=== PATIENT | male | born 1985 | race Two or more races ===

== ENCOUNTER 2020-01-30 18:14 | Emergency (ER) | payer BC ==
[2020-01-30 18:48] VITALS: BP 139/101
--- NOTE | 2020-01-30 19:11 | UC ---
Throat Pain/Nasal João HPI - HPI Summary HPI Summary: Sore throat for 2 days, fever started yesterday, joint pain and fever when pt has fever. Please print d/c instructions in Greek - History of Current Complaint Chief Complaint: UCRespiratory Stated Complaint: SORE THROAT,FEVER Time Seen by Provider: 01/30/20 19:10 Hx Obtained From: Patient Onset/Duration: Sudden Onset, Lasting Days Severity: Moderate Pain Intensity: 0 Associated Signs & Symptoms: Positive: Dysphagia, Fever - Allergies/Home Medications Allergies/Adverse Reactions: Allergies Allergy/AdvReac Type Severity Reaction Status Date / Time No Known Allergies Allergy Verified 01/30/20 18:48 Home Medications: Home Medications Acetaminophen [Athenol] 650 mg PO Q12H PRN 01/30/20 [History Confirmed 01/30/20] PMH/Surg Hx/FS Hx/Imm Hx Previously Healthy: Yes - Surgical History Surgical History: None - Family History Known Family History: Positive: Hypertension - Social History Alcohol Use: Occasionally Substance Use Type: None Smoking Status (MU): Never Smoked Tobacco Review of Systems All Other Systems Reviewed And Are Negative: Yes Constitutional: Positive: Fever, Fatigue ENT: Positive: Sore Throat Musculoskeletal: Positive: Arthralgia, Myalgia Is Patient Immunocompromised?: No Physical Exam Triage Information Reviewed: Yes Appearance: Well-Nourished, Ill-Appearing, Pain Distress Vital Signs: Initial Vital Signs Temp 100 F 01/30/20 18:37 Pulse 108 01/30/20 18:37 Resp 18 01/30/20 18:37 BP 139/101 01/30/20 18:37 Pulse Ox 99 01/30/20 18:37 Vital Signs Reviewed: Yes Eye Exam: Normal ENT: Positive: Pharyngeal erythema, TM bulging Dental Exam: Normal Neck exam: Normal Respiratory Exam: Normal Respiratory: Positive: Chest non-tender, Lungs clear, Normal breath sounds Cardiovascular Exam: Normal Cardiovascular: Positive: RRR, No Murmur, Pulses Normal Abdominal Exam: Normal Bowel Sounds: Positive: Present Musculoskeletal Exam: Normal Neurological Exam: Normal Psychological Exam: Normal Skin Exam: Normal Throat Pain/Nasal Course/Dx - Course Course Of Treatment: hx obtained, exam performed ,meds reviewed, rapid flu obtained, and MOtrin given - Differential Dx/Diagnosis Differential Diagnosis/HQI/PQRI: Influenza, Otitis Media, Pharyngitis, Sinusitis Provider Diagnosis: Viral syndrome Discharge ED - Sign-Out/Discharge Documenting (check all that apply): Patient Departure All imaging exams completed and their final reports reviewed: No Studies - Discharge Plan Condition: Stable Disposition: HOME Patient Education Materials: Viral Syndrome (ED) Print Language: GUINEAN Referrals: No Primary Care Phys,NOPCP [Primary Care Provider] - Additional Instructions: Anthony prueba de gripe fue negativa. Adelaide sntomas son consistentes con la enfermedad viral. tome tylenol e ibuprofeno segn sea necesario para joão y molestias. descanse mucho y aumente los lquidos La enfermedad viral generalmente dura de 7 a 10 bradley. - Billing Disposition and Condition Condition: STABLE Disposition: Home
[2020-01-30] MEDS ORDERED: Ibuprofen TAB* 600 MG PO ONE (19:16)
[2020-01-30 19:37] LABS: Influenza A Molecular Negative (Negative); Influenza B Molecular Negative (Negative)
== END 2020-01-30 19:48 | disposition home or self-care (01) ==
LOC: UCCORT 18:14
DX: B34.9 Viral infection, unspecified (principal); J02.9 Acute pharyngitis, unspecified; R53.83 Other fatigue; M79.10 Myalgia, unspecified site
CPT/HCPCS: 99202; A9270-GY; G0463